=== PATIENT | male | born 1960 | race Caucasian/White ===

== ENCOUNTER → 2017-03-18 | Outpatient (CLI) | payer OTHER ==
[~2017-03-18] MED LIST: CHOL10003 PO; FENTANYL PF 100 MCG/2ML IV PRN; FENTANYL PF 100 MCG/2ML ONE; FLUO20TA25 PO; FLUO40CA9 PO; GABA100C PO; GARL10002 PO; HYDROmorphone 1 MG/ML, 1ML IV PRN; KETOROLAC 30 MG/1 ML IV PRN; LABETALOL 5MG/ML, 20ML IV PRN; LEVO100T5 PO; MEPERIDINE/PF 25MG/0.5ML IVPush PRN; METOCLOPRAMIDE 5 MG/ML, 2ML IV PRN; MIDAZOLAM 1 MG/ML, 2ML IV PRN; MIDAZOLAM 1 MG/ML, 2ML ONE; MORP-52 PO; MORP15TA PO; OMEG1CAP6 PO; ONDANSETRON 2MG/ML, 2ML IVPush PRN; PANT40TA5 PO; PLEASE ENTER HEIGHT AND WEIGHT MC SCH; POTASSIUM PO; RANI300T PO; morphine SULFATE 10 MG/ML, 1ML IV PRN
== END | disposition home or self-care (01) ==
LOC: STAR 10:17
PROVIDERS: ATTEND Internal Medicine Geriatric Medicine
DX: Z02.9 Encounter for administrative examinations, unspecified (principal)

== ENCOUNTER 2017-03-22 11:47 | Day surgery (SDC) | payer OTHER ==
[2017-03-18 14:40] VITALS: BP 99/59
[~2017-03-22] VITALS: Ht 175.3 cm; Wt 71.8 kg
[~2017-03-22 11:47] MED LIST changes: -FENTANYL PF 100 MCG/2ML ONE; -MIDAZOLAM 1 MG/ML, 2ML ONE; -PLEASE ENTER HEIGHT AND WEIGHT MC SCH
[2017-03-22] MEDS ORDERED: LACTATED RINGERS 1,000 ML IV SCH (12:21)
[2017-03-22] MEDS ORDERED: LIDOCAINE 1%, 2ML ONE (12:30)
[2017-03-22] MEDS ORDERED: LIDOCAINE 1%, 2ML SQ PRN (12:30)
[2017-03-22] MEDS ORDERED: DEXAMETHASONE 4 MG/ML, 1ML ONE (12:55)
[2017-03-22] MEDS ORDERED: ROCURONIUM 10 MG/ML ONE (12:55)
[2017-03-22] MEDS ORDERED: NEOSTIGMINE 1 MG/ML, 10ML ONE (12:55)
[2017-03-22] MEDS ORDERED: GLYCOPYRROLATE 0.2MG/1ML, 5ML ONE (12:55)
== END 2017-03-22 15:25 ==
LOC: OUT 11:47
PROVIDERS: ATTEND Internal Medicine Geriatric Medicine
DX: R13.14 Dysphagia, pharyngoesophageal phase (principal); D64.9 Anemia, unspecified; E78.5 Hyperlipidemia, unspecified
CPT/HCPCS: 43248; J1100; J2250; J2710; J3010; J3490; J7120